=== PATIENT | female | born 1960 | race Caucasian/White ===

== ENCOUNTER 2017-05-11 15:20 | Emergency (ER) | payer MEDICARE, MEDICAID ==
[2017-05-11] VITALS (7 sets, daily range): BP systolic 118–136; BP diastolic 74–86; PULSE 73–90; RESP 17–20; TEMP 97.2; O2SAT 98–100
[~2017-05-11] VITALS: Ht 170.2 cm; Wt 112.0 kg
[~2017-05-11 15:20] MED LIST: CARB200T PO; TRIA1TAB5 PO
[2017-05-11] MEDS ORDERED: SODIUM CHLOR 0.9% 1000 ML INJ 1,000 ML IV SCH (16:06)
--- NOTE | 2017-05-11 16:09 | PD ---
HPI Chief Complaint: Flank/Kidney Pain Time Seen by Provider: 15:58 Travel History International Travel<30 days: No Contact w/Intl Traveler<30days: No Traveled to known affect area: No History of Present Illness HPI Patient is a 57 year old male who has a history of kidney stones presents with fairly sudden onset of left flank pain approximately one hour prior to arrival with nausea and dry heaves. Also endorses decreased urination and dysuria. Endorses some hematuria as well. She states the pain starts in her costovertebral angle and then radiates all the way down into her groin, spasmodic. States severe, associated signs symptoms and context as above, intermittent. PFSH Past Medical History Cancer: Yes (UTERINE) Cardiovascular Problems: No COPD: Yes Diabetes: No Diminished Hearing: Yes ([place] [employer] [employer] IN LEFT EAR) Gastrointestinal Disorders: Yes (DIAHREA) Genitourinary: No Headaches: Yes Implanted Vascular Access Dvce: Yes Kidney Stones: Yes Musculoskeletal: Yes (LEFT ROTATOR CUFF REPAIR) Neurologic: Yes (VERTIGO) Respiratory: Yes (copd) Immunizations Current: No Thyroid Disease: No Tetanus Vaccination: > 5 Years Influenza Vaccination: No ?: Not Menopausal: Yes : 2 Para: 2 Past Surgical History Body Medical Devices: LEFT ARM PINS Gynecologic Surgery: Yes (UTERUS REMOVED) Hysterectomy: Yes Other Surgery: Yes Social History Alcohol Use: No Tobacco Use: Yes (2 cigs daily) Substance Use: No Allergies-Medications (Allergen,Severity, Reaction): Coded Allergies: meperidine (Unverified Allergy, Severe, Nausea/Vomiting, 05/11/17) aspirin (Unverified Adverse Reaction, Intermediate, GI UPSET, 05/11/17) Reported Meds & Prescriptions Reported Meds & Active Scripts Active [place] (Hydrocodone-Acetaminophen) 10-325 Mg Tab 1 Tab PO Q6H PRN Zofran (Ondansetron HCl) 4 Mg Tab 4 Mg PO Q8HR PRN Flomax (Tamsulosin HCl) 0.4 Mg Cap 0.4 Mg PO HS Review of Systems Except as stated in HPI: all other systems reviewed are Neg Physical Exam Narrative GENERAL: Well-developed well-nourished, appears quite uncomfortable writhing around in the stretcher. SKIN: Focused skin assessment warm/dry. HEAD: Atraumatic. Normocephalic. EYES: Pupils equal and round. No scleral icterus. No injection or drainage. ENT: No nasal bleeding or discharge. Mucous membranes pink and moist. NECK: Trachea midline. No JVD. CARDIOVASCULAR: Regular rate and rhythm. No murmur appreciated. RESPIRATORY: No accessory muscle use. Clear to auscultation. Breath sounds equal bilaterally. GASTROINTESTINAL: Abdomen soft, non-tender, nondistended. Hepatic and splenic margins not palpable. Mild CVA tenderness on the left, abdomen appears to be soft but limited secondary to patient cooperation. MUSCULOSKELETAL: No obvious deformities. No clubbing. No cyanosis. No edema. NEUROLOGICAL: Awake and alert. No obvious cranial nerve deficits. Motor grossly within normal limits. Normal speech. PSYCHIATRIC: Appropriate mood and affect; insight and judgment normal. Data Data Last Documented VS Vital Signs Date Time Temp Pulse Resp B/P (MAP) Pulse Ox O2 Delivery O2 Flow Rate FiO2 05/11/17 19:28 20 05/11/17 19:25 94 127/74 (91) 96 05/11/17 18:17 Room Air 05/11/17 15:39 97.2 Orders Orders Complete Blood Count With Diff (05/11/17 16:06) Comprehensive Metabolic Panel (05/11/17 16:06) Lipase (05/11/17 16:06) Urinalysis - C+S If Indicated (05/11/17 16:06) Iv Access Insert/Monitor (05/11/17 16:06) Ecg Monitoring (05/11/17 16:06) Oximetry (05/11/17 16:06) Ondansetron Inj (Zofran Inj) (05/11/17 16:15) Sodium Chlor 0.9% 1000 Ml Inj (Ns 1000 M (05/11/17 16:06) Sodium Chloride 0.9% Flush (Ns Flush) (05/11/17 16:15) Ketorolac Inj (Toradol Inj) (05/11/17 16:15) Urine Culture (05/11/17 16:20) Ct Abd/Pel W/O Iv Contrast (05/11/17 ) Morphine Inj (Morphine Inj) (05/11/17 18:30) Ed Discharge Order (05/11/17 18:55) Labs Laboratory Tests Test 05/11/17 16:20 White Blood Count 11.4 TH/MM3 Red Blood Count 4.57 MIL/MM3 Hemoglobin 13.7 GM/DL Hematocrit 40.8 % Mean Corpuscular Volume 89.3 FL Mean Corpuscular Hemoglobin 30.0 PG Mean Corpuscular Hemoglobin Concent 33.6 % Red Cell Distribution Width 11.9 % Platelet Count 268 TH/MM3 Mean Platelet Volume 8.4 FL Neutrophils (%) (Auto) 73.6 % Lymphocytes (%) (Auto) 18.7 % Monocytes (%) (Auto) 5.5 % Eosinophils (%) (Auto) 1.8 % Basophils (%) (Auto) 0.4 % Neutrophils # (Auto) 8.5 TH/MM3 Lymphocytes # (Auto) 2.1 TH/MM3 Monocytes # (Auto) 0.6 TH/MM3 Eosinophils # (Auto) 0.2 TH/MM3 Basophils # (Auto) 0.0 TH/MM3 CBC Comment DIFF FINAL Differential Comment Urine Color BROWN Urine Turbidity CLOUDY Urine pH 5.0 Urine Specific [place] 1.031 Urine Protein 100 mg/dL Urine Glucose (UA) NEG mg/dL Urine Ketones TRACE mg/dL Urine Occult Blood LARGE Urine Nitrite NEG Urine Bilirubin NEG Urine Leukocyte Esterase NEG Urine RBC 100-200 /hpf Urine WBC 9-14 /hpf Urine Squamous Epithelial Cells > 8 /hpf Urine Amorphous Sediment FEW Urine Bacteria FEW /hpf Microscopic Urinalysis Comment CULTURE INDICATED Blood Urea Nitrogen 28 MG/DL Creatinine 1.40 MG/DL Random Glucose 127 MG/DL Total Protein 8.0 GM/DL Albumin 3.9 GM/DL Calcium Level 9.6 MG/DL Alkaline Phosphatase 102 U/L Aspartate Amino Transf (AST/SGOT) 33 U/L Alanine Aminotransferase (ALT/SGPT) 33 U/L Total Bilirubin 0.3 MG/DL Sodium Level 140 MEQ/L Potassium Level 4.4 MEQ/L Chloride Level 105 MEQ/L Carbon Dioxide Level 24.6 MEQ/L Anion Gap 10 MEQ/L Estimat Glomerular Filtration Rate 38 ML/MIN Lipase 207 U/L [facility] Medical Decision Making Medical Screen Exam Complete: Yes Emergency Medical Condition: Yes Differential Diagnosis Kidney stones, obstructive uropathy, renal colic, UTI, hydronephrosis. Narrative Course Patient roomed emergency Department, Toradol given and appears more comfortable was able to sleep and upon waking stated that her pain was still quite severe, she is not driving home and a dose of morphine was ordered for her. The patient much more comfortable after this medicine. She does have a mild elevation of her creatinine over the last at this hospital. Last 24 hours Impressions Abdomen/Pelvis CT 05/11/17 0000 Signed Impressions: Service Date/Time: May 17:44 - CONCLUSION: Moderate left sided hydronephrosis and hydroureter identified with perinephric stranding and perinephric fluid secondary to an obstructing distal left ureteral calculus. Van Morales MD The patient was discussed with Dr. Kwok who states that if the patient's pain is well-controlled with her findings now she should consider following up outpatient trial of passage. Discussed with the patient and she is agreeable. Discussed symptomatic management as well as adverse effects of medications prescribed. She is agreeable this time. Strongly encouraged follow-up with the urologist and her primary care physician. Discussed return to ED criteria. She is stable for discharge. Diagnosis Primary Impression: Nephrolithiasis Additional Impression: Renal colic Referrals: Amrik Kwok MD Additional Instructions: Call Dr. Kwok tomorrow for an appointment within the next 7-10 days. If he start running fevers pain cannot be controlled at home and return to the emergency department for another evaluation. Med/Other Pt SpecificInfo: Prescription(s) given Scripts Hydrocodone-Acetaminophen ([place]) 10-325 Mg Tab 1 TAB PO Q6H Y for PAIN, #12 TAB 0 Refills Prov: Michael Rosas MD 05/11/17 Ondansetron (Zofran) 4 Mg Tab 4 MG PO Q8HR Y for NAUSEA OR VOMITING, #20 TAB 0 Refills Prov: Michael Rosas MD 05/11/17 Tamsulosin (Flomax) 0.4 Mg Cap 0.4 MG PO HS for Manage Prostate Problems, #30 CAP 0 Refills Prov: Michael Rosas MD 05/11/17 Disposition: 01 DISCHARGE HOME Condition: Stable Michael Rosas MD May 11, 2017 16:09
[2017-05-11] MEDS ORDERED: KETOROLAC TROMETHAMINE 30 MG/ML (IVP) VIAL IVP ONE (16:15)
[2017-05-11] MEDS ORDERED: ONDANSETRON HCL 4 MG/2 ML VIAL IVP ONE (16:15)
[2017-05-11] MEDS ORDERED: SODIUM CHLORIDE 0.9% FLUSH 10 ML FLUSH IV FLUSH PRN (16:15)
[2017-05-11 16:45] LABS: AUTOMATED NEUTROPHIL # 8.5 TH/MM3 (1.8-7.7); BASOPHIL % 0.4 % (0.0-2.0); BILIRUBIN, URINE NEG (NEG); BLOOD, URINE LARGE (NEG); EOSINOPHIL # 0.2 TH/MM3 (0-0.4); EOSINOPHIL % 1.8 % (0.0-4.0); GLUCOSE,URINE NEG (NEG); HEMATOCRIT 40.8 % (35.0-46.0); HEMOGLOBIN 13.7 GM/DL (11.6-15.3); KETONE, URINE TRACE mg/dL (NEG); LYMPH % 18.7 % (9.0-44.0); LYMPHOCYTE # 2.1 TH/MM3 (1.0-4.8); MEAN CELL VOLUME 89.3 FL (80.0-100.0); MEAN CORPUSCULAR HGB CONC 33.6 % (32.0-36.0); MEAN PLATELET VOLUME 8.4 FL (7.0-11.0); MONO % 5.5 % (0.0-8.0); MONOCYTE # 0.6 TH/MM3 (0-0.9); NEUT % 73.6 % (16.0-70.0); NITRITE,URINE NEG (NEG); PLATELET COUNT 268 TH/MM3 (150-450); RED BLOOD COUNT 4.57 MIL/MM3 (4.00-5.30); RED CELL DISTRIBUTION WIDTH 11.9 % (11.6-17.2); URINE LEUKOCYTE ESTERASE NEG (NEG); WHITE BLOOD COUNT 11.4 TH/MM3 (4.0-11.0)
[2017-05-11 16:51] LABS: URINE COLOR BROWN (YELLW/STRAW)
[2017-05-11 16:52] LABS: AMORPHOUS SEDIMENT, URINE FEW; BACTERIA, URINE FEW /hpf; CHLORIDE 105 MEQ/L (98-107); RBC, URINE 100-200 /hpf (0-3); SODIUM (NA) 140 MEQ/L (136-145); SQUAMOUS EPITHELIAL CELL URINE > 8 /hpf (0-5)
[2017-05-11 16:55] LABS: CALCIUM 9.6 MG/DL (8.5-10.1)
[2017-05-11 16:56] LABS: ALBUMIN 3.9 GM/DL (3.4-5.0); BICARBONATE 24.6 MEQ/L (21.0-32.0); BLOOD UREA NITROGEN 28 MG/DL (7-18); GLUCOSE,RANDOM 127 MG/DL (74-106); LIPASE 207 U/L (73-393)
[2017-05-11 16:59] LABS: ALT (GPT) 33 U/L (10-53); AST (GOT) 33 U/L (15-37); GLOMERULAR FILTRATION RATE 38 ML/MIN (>89)
[2017-05-11 17:00] LABS: TOTAL BILIRUBIN ADULT 0.3 MG/DL (0.2-1.0)
[2017-05-11 17:02] LABS: ALKALINE PHOSPHATASE 102 U/L (45-117)
--- NOTE | 2017-05-11 18:02 | RADRPT ---
EXAM DATE/TIME: 05/11/2017 17:44 [facility] COMPARISON: CT ABDOMEN & PELVIS W/O CONTRAST, March 22, 2016, 20:29. INDICATIONS : Left flank pain. Hematuria. ORAL CONTRAST: No oral contrast ingested. RADIATION DOSE: 23.01 CTDIvol (mGy) MEDICAL HISTORY : Chronic obstructive pulmonary disease. Renal calculi. Uterine cancer. SURGICAL HISTORY : Hysterectomy. ENCOUNTER: Initial ACUITY: 1 day PAIN SCALE: 9/10 LOCATION: Left flank TECHNIQUE: Volumetric scanning of the abdomen and pelvis was performed. Using automated exposure control and ad justment of the mA and/or kV according to patient size, radiation dose was kept as low as reasonably achievable to obtain optimal diagnostic quality images. DICOM format image data is available electro nically for review and comparison. FINDINGS: Lung bases are clear. The osseous structures are intact. Atherosclerotic calcifications of the aorta and iliac vessels are present. The patient is status post hysterectomy. There is a small hiatal herni a present. Spleen, pancreas, adrenal glands, right kidney unremarkable. Urinary bladder unremarkable. There is moderate left-sided hydronephrosis and moderate perinephric stranding and perinephric fluid identified on the left. There is hydroureter. This is secondary to an obstructing distal left ureter al calculus which measures 5.5 mm on axial image 135. This is 1.5 cm proximal to the left ureterovesi david junction. No evidence of bowel obstruction. CONCLUSION: Moderate left sided hydronephrosis and hydroureter identified with perinephric stranding and perineph al fluid secondary to an obstructing distal left ureteral calculus. Van Morales MD on May 11, 2017 at 17:57 Board Certified Radiologist. This report was verified electronically.
[2017-05-11] MEDS ORDERED: MORPHINE SULFATE 2 MG/ML INJ IV PUSH ONE (18:30)
[2017-05-11] MEDS ORDERED: HYDR-3366 PO (18:48)
[2017-05-11] MEDS ORDERED: ZOFR4TAB PO (18:48)
[2017-05-11] MEDS ORDERED: TAMS5CAP PO (18:48)
== END 2017-05-11 19:29 | disposition home or self-care (01) ==
LOC: PHED 15:20
DX: N13.2 Hydronephrosis with renal and ureteral calculous obstruction (principal); R11.0 Nausea; Z87.442 Personal history of urinary calculi
CPT/HCPCS: 74176; 80053; 81001; 83690; 85025; 87086; 96361; 96374; 96375; 99285; J1885; J2270; J2405; J7030